=== PATIENT | female | born 1985 | race American Indian/Alaskan Native ===

== ENCOUNTER 2016-11-17 23:18 | Emergency (ER) | payer MEDICAID ==
[2016-11-18] MEDS ORDERED: NORCO 5/325 PO ONE (01:39)
--- NOTE | 2016-11-18 02:08 | Emergency Department Report ---
ED ENT HPI - General Chief complaint: Dental/Oral Stated complaint: TOOTHACHE Time Seen by Provider: 11/18/16 01:36 Source: patient Mode of arrival: Ambulatory Limitations: No Limitations - History of Present Illness Initial comments: 31-year-old femalesignificant past medical history presents with complaint of 4 days of left-sided lower toothache. Patient states that she knows she has a cavity which has not been addressed for some time. Patient denies any difficulty breathing no difficulty swallowing solids or liquids denies any pus or blood drainage from mouth, speaking in full sentences. States she has some pain with chewing. MD complaint: tooth pain Onset/Timin -: days(s) Location: tooth # (17) Severity: moderate Severity scale (0 -10): 5 Quality: sharp Consistency: intermittent Improves with: none Worsens with: eating Context- Dental: history of dental caries Associated Symptoms: toothache - Related Data Previous Rx's Medication Instructions Recorded Last Taken Type HYDROcodone/APAP 5-325 [[place] 1 each PO Q6HR PRN #15 tablet 01/04/15 Unknown Rx 5-325 mg TAB] Amoxicillin 500 mg PO Q8H #30 capsule 11/18/16 Unknown Rx Chlorhexidine Mouthwash [Peridex] 118 ml MM Q6H #1 bottle 11/18/16 Unknown Rx HYDROcodone/APAP 5-325 [[place] 1 each PO Q6HR PRN #12 tablet 11/18/16 Unknown Rx 5/325] Ibuprofen [Motrin] 600 mg PO Q8H PRN #30 tablet 11/18/16 Unknown Rx Allergies Allergy/AdvReac Type Severity Reaction Status Date / Time No Known Allergies Allergy Verified 01/02/15 16:36 ED Dental HPI - General Chief complaint: Dental/Oral Stated complaint: TOOTHACHE Time Seen by Provider: 11/18/16 01:36 Source: patient Mode of arrival: Ambulatory Limitations: No Limitations - Related Data Previous Rx's Medication Instructions Recorded Last Taken Type HYDROcodone/APAP 5-325 [[place] 1 each PO Q6HR PRN #15 tablet 01/04/15 Unknown Rx 5-325 mg TAB] Amoxicillin 500 mg PO Q8H #30 capsule 11/18/16 Unknown Rx Chlorhexidine Mouthwash [Peridex] 118 ml MM Q6H #1 bottle 11/18/16 Unknown Rx HYDROcodone/APAP 5-325 [[place] 1 each PO Q6HR PRN #12 tablet 11/18/16 Unknown Rx 5/325] Ibuprofen [Motrin] 600 mg PO Q8H PRN #30 tablet 11/18/16 Unknown Rx Allergies Allergy/AdvReac Type Severity Reaction Status Date / Time No Known Allergies Allergy Verified 01/02/15 16:36 ED Review of Systems ROS: Stated complaint: TOOTHACHE Other details as noted in HPI Constitutional: denies: chills, fever Eyes: denies: eye pain, eye discharge, vision change ENT: dental pain. denies: ear pain, throat pain Respiratory: denies: cough, shortness of breath, wheezing Cardiovascular: denies: chest pain, palpitations Endocrine: no symptoms reported Gastrointestinal: denies: abdominal pain, nausea, diarrhea Genitourinary: denies: urgency, dysuria, discharge Musculoskeletal: denies: back pain, joint swelling, arthralgia Skin: denies: rash, lesions Neurological: denies: headache, weakness, paresthesias Psychiatric: denies: anxiety, depression Hematological/Lymphatic: denies: easy bleeding, easy bruising ED Past Medical Hx - Past Medical History Previous Medical History?: Yes Hx Hypertension: No Hx Congestive Heart Failure: No Hx Diabetes: No Hx Deep Vein Thrombosis: No Hx Renal Disease: No Hx Sickle Cell Disease: No Hx Seizures: No Hx Asthma: No Hx COPD: No Additional medical history: hyperthyroid - Surgical History Additional Surgical History: tubal ligation - Social History Smoking Status: Current Every Day Smoker Substance Use Type: Alcohol - Medications Home Medications: Home Medications Medication Instructions Recorded Confirmed Last Taken Type HYDROcodone/APAP 5-325 [[place] 1 each PO Q6HR PRN #15 tablet 01/04/15 Unknown Rx 5-325 mg TAB] Amoxicillin 500 mg PO Q8H #30 capsule 11/18/16 Unknown Rx Chlorhexidine Mouthwash [Peridex] 118 ml MM Q6H #1 bottle 11/18/16 Unknown Rx HYDROcodone/APAP 5-325 [[place] 1 each PO Q6HR PRN #12 tablet 11/18/16 Unknown Rx 5/325] Ibuprofen [Motrin] 600 mg PO Q8H PRN #30 tablet 11/18/16 Unknown Rx ED Physical Exam - General Limitations: No Limitations General appearance: alert, in no apparent distress - Head Head exam: Present: atraumatic, normocephalic - Eye Eye exam: Present: normal appearance, PERRL, EOMI - ENT ENT exam: Present: mucous membranes moist - Expanded ENT Exam Expanded Teeth exam: Present: dental caries (visible dental cavity tooth #17, no abscess around), dental tenderness # (17, visible dental caries) Throat exam: Positive: normal inspection - Neck Neck exam: Present: normal inspection - Respiratory Respiratory exam: Present: normal lung sounds bilaterally. Absent: respiratory distress - Cardiovascular Cardiovascular Exam: Present: regular rate, normal rhythm. Absent: systolic murmur, diastolic murmur, rubs, gallop - GI/Abdominal GI/Abdominal exam: Present: soft, normal bowel sounds - Extremities Exam Extremities exam: Present: normal inspection - Back Exam Back exam: Present: normal inspection - Neurological Exam Neurological exam: Present: alert, oriented X3 - Psychiatric Psychiatric exam: Present: normal affect, normal mood - Skin Skin exam: Present: warm, dry, intact, normal color. Absent: rash ED Course Vital Signs 11/17/16 11/18/16 23:24 02:19 Temperature 98.2 F Pulse Rate 94 H Respiratory 14 20 Rate O2 Sat by Pulse 99 Oximetry ED Medical Decision Making - Medical Decision Making A/P: toothache, dental caries 1-Peridex mouthwash, short course [place], Motrin when necessary, amoxicillin 10 day course 2-patient referred to dental clinics 3-advised patient to return to the ED if she experiences any pus drainage from mouth difficulty speaking difficulty swallowing persistent nausea or vomiting Critical care attestation.: If time is entered above; I have spent that time in minutes in the direct care of this critically ill patient, excluding procedure time. ED Disposition Clinical Impression: Toothache, Dental caries Disposition: DISCHARGED TO HOME OR SELFCARE Is pt being admited?: No Does the pt Need Aspirin: No Condition: Stable Instructions: Dental Caries (ED) Prescriptions: Amoxicillin 500 mg PO Q8H #30 capsule Chlorhexidine Mouthwash [Peridex] 118 ml MM Q6H #1 bottle HYDROcodone/APAP 5-325 [[place] 5/325] 1 each PO Q6HR PRN #12 tablet PRN Reason: Pain Ibuprofen [Motrin] 600 mg PO Q8H PRN #30 tablet PRN Reason: Pain Referrals: [facility] [Outside] - 3-5 Days Forms: Work/School Release Form(ED) Time of Disposition: 02:19
== END 2016-11-18 02:42 | disposition home or self-care (01) ==
LOC: ED 23:18
DX: K02.9 Dental caries, unspecified (principal); K08.89 Other specified disorders of teeth and supporting structures; F17.200 Nicotine dependence, unspecified, uncomplicated
CPT/HCPCS: 99282

== ENCOUNTER 2019-05-07 03:09 | Emergency (ER) | payer MEDICAID ==
[2019-05-07 03:16] VITALS: BP 124/84
--- NOTE | 2019-05-07 03:48 | Emergency Department Report ---
ED ENT HPI - General Chief complaint: Dental/Oral Stated complaint: TOOTHACHE Time Seen by Provider: 05/07/19 03:44 Source: patient Mode of arrival: Ambulatory Limitations: No Limitations - History of Present Illness Initial comments: 34 year old -I[place] female with a 14 week history of toothache. Patient reports that the last 3 days worth. Patient reports she is aware that she has a bad teeth and has an appointment with the dentist on the on [facility]. She did take an ibuprofen 800 mg without much relief. Denies any other past medical history takes no medications on a daily basis and has no known drug allergies. MD complaint: tooth pain Onset/Timin -: week(s) Location: tooth # (2) Severity: severe Severity scale (0 -10): 9 Quality: stabbing, aching, sharp Consistency: constant Improves with: none Worsens with: eating Context- Dental: history of dental caries, poor dental care - Related Data Previous Rx's Medication Instructions Recorded Last Taken Type HYDROcodone/APAP 5-325 [[place] 1 each PO Q6HR PRN #15 tablet 01/04/15 Unknown Rx 5-325 mg TAB] Amoxicillin 500 mg PO Q8H #30 capsule 11/18/16 Unknown Rx Chlorhexidine Mouthwash [Peridex] 118 ml MM Q6H #1 bottle 11/18/16 Unknown Rx HYDROcodone/APAP 5-325 [[place] 1 each PO Q6HR PRN #12 tablet 11/18/16 Unknown Rx 5/325] Ibuprofen [Motrin] 600 mg PO Q8H PRN #30 tablet 11/18/16 Unknown Rx Acetaminophen/Codeine [Tylenol 1 tab PO Q6H PRN #12 tab 05/07/19 Unknown Rx /Codeine # 3 tab] Clindamycin [Clindamycin CAP] 300 mg PO Q8H 10 Days #30 cap 05/07/19 Unknown Rx Allergies Allergy/AdvReac Type Severity Reaction Status Date / Time No Known Allergies Allergy Verified 01/02/15 16:36 ED Dental HPI - General Chief complaint: Dental/Oral Stated complaint: TOOTHACHE Time Seen by Provider: 05/07/19 03:44 Source: patient Mode of arrival: Ambulatory Limitations: No Limitations - Related Data Previous Rx's Medication Instructions Recorded Last Taken Type HYDROcodone/APAP 5-325 [[place] 1 each PO Q6HR PRN #15 tablet 01/04/15 Unknown Rx 5-325 mg TAB] Amoxicillin 500 mg PO Q8H #30 capsule 11/18/16 Unknown Rx Chlorhexidine Mouthwash [Peridex] 118 ml MM Q6H #1 bottle 11/18/16 Unknown Rx HYDROcodone/APAP 5-325 [[place] 1 each PO Q6HR PRN #12 tablet 11/18/16 Unknown Rx 5/325] Ibuprofen [Motrin] 600 mg PO Q8H PRN #30 tablet 11/18/16 Unknown Rx Acetaminophen/Codeine [Tylenol 1 tab PO Q6H PRN #12 tab 05/07/19 Unknown Rx /Codeine # 3 tab] Clindamycin [Clindamycin CAP] 300 mg PO Q8H 10 Days #30 cap 05/07/19 Unknown Rx Allergies Allergy/AdvReac Type Severity Reaction Status Date / Time No Known Allergies Allergy Verified 01/02/15 16:36 ED Review of Systems ROS: Stated complaint: TOOTHACHE Other details as noted in HPI Comment: All other systems reviewed and negative ENT: dental pain ED Past Medical Hx - Past Medical History Previous Medical History?: Yes Hx Hypertension: No Hx Congestive Heart Failure: No Hx Diabetes: No Hx Deep Vein Thrombosis: No Hx Renal Disease: No Hx Sickle Cell Disease: No Hx Seizures: No Hx Asthma: No Hx COPD: No Additional medical history: hyperthyroid - Surgical History Past Surgical History?: Yes Additional Surgical History: tubal ligation - Social History Smoking Status: Current Every Day Smoker Substance Use Type: None - Medications Home Medications: Home Medications Medication Instructions Recorded Confirmed Last Taken Type HYDROcodone/APAP 5-325 [[place] 1 each PO Q6HR PRN #15 tablet 01/04/15 Unknown Rx 5-325 mg TAB] Amoxicillin 500 mg PO Q8H #30 capsule 11/18/16 Unknown Rx Chlorhexidine Mouthwash [Peridex] 118 ml MM Q6H #1 bottle 11/18/16 Unknown Rx HYDROcodone/APAP 5-325 [[place] 1 each PO Q6HR PRN #12 tablet 11/18/16 Unknown Rx 5/325] Ibuprofen [Motrin] 600 mg PO Q8H PRN #30 tablet 11/18/16 Unknown Rx Acetaminophen/Codeine [Tylenol 1 tab PO Q6H PRN #12 tab 05/07/19 Unknown Rx /Codeine # 3 tab] Clindamycin [Clindamycin CAP] 300 mg PO Q8H 10 Days #30 cap 05/07/19 Unknown Rx ED Physical Exam - General Limitations: No Limitations General appearance: alert, in no apparent distress - Head Head exam: Present: atraumatic, normocephalic - Eye Eye exam: Present: normal appearance, PERRL, EOMI - ENT ENT exam: Present: mucous membranes moist - Expanded ENT Exam Expanded Teeth exam: Present: dental caries, dental tenderness # (2), gingival enlargement - Neck Neck exam: Present: normal inspection - Neurological Exam Neurological exam: Present: alert, oriented X3 - Psychiatric Psychiatric exam: Present: normal affect, normal mood - Skin Skin exam: Present: warm, dry, intact, normal color. Absent: rash ED Course Vital Signs 05/07/19 05/07/19 03:13 03:18 Temperature 98.7 F Pulse Rate 87 87 Respiratory 18 Rate Blood Pressure 124/84 Blood Pressure 124/84 [Left] O2 Sat by Pulse 100 100 Oximetry ED Medical Decision Making - Medical Decision Making 34 year old -[place] female with a 14 week history of toothache. Patient reports that the last 3 days worth. Patient reports she is aware that she has a bad teeth and has an appointment with the dentist on the on [facility]. She did take an ibuprofen 800 mg without much relief. Denies any other past medical history takes no medications on a daily basis and has no known drug allergies. Critical care attestation.: If time is entered above; I have spent that time in minutes in the direct care of this critically ill patient, excluding procedure time. ED Disposition Clinical Impression: Pain, dental Disposition: [id number] TO HOME OR SELFCARE Is pt being admited?: No Does the pt Need Aspirin: No Condition: Stable Instructions: Toothache (ED), Dental Caries (ED) Additional Instructions: Complete antibiotics as prescribed. Pain medication as needed. Increase her fluid intake while taking medications. Prescriptions: Clindamycin [Clindamycin CAP] 300 mg PO Q8H 10 Days #30 cap Acetaminophen/Codeine [Tylenol /Codeine # 3 tab] 1 tab PO Q6H PRN #12 tab PRN Reason: Pain , Severe (7-10) Referrals: [facility] [Outside] - 3-5 Days [facility] [Outside] - 3-5 Days Forms: Work/School Release Form(ED)
[2019-05-07] MEDS ORDERED: NORCO 5/325 PO ONE (04:34)
[2019-05-07] MEDS ORDERED: NORCO 5/325 ONE (04:36)
== END 2019-05-07 04:37 | disposition home or self-care (01) ==
LOC: ED 03:09
DX: K08.89 Other specified disorders of teeth and supporting structures (principal); F17.200 Nicotine dependence, unspecified, uncomplicated; Z98.51 Tubal ligation status; E05.00 Thyrotoxicosis with diffuse goiter without thyrotoxic crisis or storm; Z79.899 Other long term (current) drug therapy
CPT/HCPCS: 99282